=== PATIENT | female | born 1955 | race Caucasian/White ===

== ENCOUNTER 2020-08-24 16:30 | Emergency (ER) | payer MEDICARE, MEDICAID ==
[~2020-08-24] VITALS: Ht 167.6 cm; Wt 100.0 kg
[~2020-08-24 16:30] MED LIST: ALPR0.5T PO; ALPR1TAB2 PO; AMLO-211 PO; ATOR20TA86 PO; ATOR40TA78 PO; CEFD300C37 PO; FERR-51 PO; FURO20TA3 PO; LAMO100T5 PO; LEVO50CA4 PO; LINE600T15 PO; LISI-420 PO; METF500S5 PO; METF500T27 PO; OXYC-509 PO; OXYC15TA3 PO; PRAM0.25 PO; PRAM0.753 PO; PREG100C49 PO; PREG20SO PO; QUET300T5 PO; SERT-238 PO
--- NOTE | 2020-08-24 16:45 | NUR ---
PT BIB EMS FOR CO GI-N/V/D FOR 1 WEEK. INCREASED PEDAL EDEMA FOR 1 WEEK. 2+ NON PITTING. DENIES SOB. COUGH W PHLEGM. DENIES CP RECIEVED 4 MG ZOFRAN
[2020-08-24] MEDS ORDERED: ONDANSETRON 2MG/ML, 2ML IVPush ONE (17:00)
[2020-08-24] MEDS ORDERED: SODIUM CHLORIDE FLUSH 10ML SYR IVF ONE (17:00)
[2020-08-24] MEDS ORDERED: HYDROmorphone 2 MG/ML, 1ML IVPush PRN (17:00)
[2020-08-24] MEDS ORDERED: SODIUM CHLORIDE 0.9% 1,000ML IVBOLUS ONE (17:00)
[2020-08-24 17:13] LABS: BASOPHILS % (AUTO) 1 % (0-1); EOSINOPHILS % (AUTO) 1 % (1-7); LYMPHOCYTES % (AUTO) 17 % (22-44); MEAN CORPUSCULAR HGB CONC 31.9 g/dL (32.4-35.8); MEAN PLATELET VOLUME 7.6 fL (7.4-10.4); MONOCYTES % (AUTO) 5 % (2-9); NEUTROPHILS % (AUTO) 77 % (42-75); PLATELET COUNT 267 x10^3/uL (130-400); RED BLOOD COUNT 4.74 x10^6/uL (3.82-5.3); RED CELL DISTRIBUTION WIDTH 22.9 % (9.6-15.2)
[2020-08-24 17:23] LABS: ALBUMIN 3.5 g/dL (3.4-5.0); ANION GAP 4 mmol/L (5-15); CALCIUM 9.3 mg/dL (8.5-10.1); CHLORIDE 104 mmol/L (98-107)
[2020-08-24 17:27] LABS: ALANINE AMINOTRANSFERASE 45 U/L (12-78); ALKALINE PHOSPHATASE 115 U/L (45-117); BILIRUBIN,TOTAL 0.4 mg/dL (0.2-1.0); TOTAL PROTEIN 6.9 g/dL (6.4-8.2)
--- NOTE | 2020-08-24 17:29 | NUR ---
PT WATCHING TV. PIV, IVF. NO CO PAIN
[2020-08-24] MEDS ORDERED: ALBUTEROL/IPRATROPIUM 2.5MG/0.5MG, 3 ML NPPB ONE (17:30)
[2020-08-24 17:36] LABS: MD MORPH REVIEW ONLY
[2020-08-24 17:37] LABS: ANISOCYTOSIS 2+; POLYCHROMASIA 1+
[2020-08-24 17:38] LABS: HYPOCHROMIA 1+; OVALOCYTES 1+
[2020-08-24 17:39] LABS: <PLATELET ESTIMATE> ADEQUATE; <PLT MORPHOLOGY> NORMAL PLT MORPH
[2020-08-24] MEDS ORDERED: ALBUTEROL/IPRATROPIUM 2.5MG/0.5MG, 3 ML ONE (17:40)
[2020-08-24] MEDS ORDERED: ONDANSETRON 2MG/ML, 2ML ONE (18:07)
[2020-08-24] MEDS ORDERED: HYDROmorphone 1 MG/ML, 1ML INJ ONE (18:07)
--- NOTE | 2020-08-24 18:37 | NUR ---
PT RESTING, RELIEF FROM PAIN AFTER MEDICATION. BREATHING IMPROVED AFTER NEV. IVF.
--- NOTE | 2020-08-24 18:57 | NUR ---
REPORT FROM CONRAD [place]
[2020-08-24 18:59] VITALS: BP 131/56
--- NOTE | 2020-08-24 19:10 | NUR ---
PT VSS. DR MUSE IN TO RECHECK PT. OK FOR DISCHARGE. SHES STATES "PLEASE DONT SEND ME HOME"
--- NOTE | 2020-08-24 19:47 | NUR ---
PT AMBULATED IN THE ROOM WITH A STEADY GAIT. PT REQUESTING A WHEELCHAIR TO THE DISCHARGE DESK. DISCHARGE INSTRUCTIONS PROVIDED AND PT PROVIDED TAXI VOUCHER.
== END 2020-08-24 19:49 | disposition home or self-care (01) ==
LOC: ED 16:54
DX: R11.2 Nausea with vomiting, unspecified (principal); R19.7 Diarrhea, unspecified; E11.9 Type 2 diabetes mellitus without complications; J44.9 Chronic obstructive pulmonary disease, unspecified; I10 Essential (primary) hypertension; E78.5 Hyperlipidemia, unspecified; Z90.49 Acquired absence of other specified parts of digestive tract; Z90.710 Acquired absence of both cervix and uterus; F17.200 Nicotine dependence, unspecified, uncomplicated; Z88.6 Allergy status to analgesic agent; Z88.1 Allergy status to other antibiotic agents; Z88.5 Allergy status to narcotic agent; Z86.39 Personal history of other endocrine, nutritional and metabolic disease
CPT/HCPCS: 36415; 74021; 80053; 83690; 85025; 94640; 96361; 96374; 96375; 99284; J1170; J2405; J7030

== ENCOUNTER 2020-11-26 14:41 | Emergency (ER) | payer MEDICARE, MEDICAID ==
[~2020-11-26] VITALS: Ht 167.6 cm; Wt 104.5 kg
[~2020-11-26 14:41] MED LIST changes: -LISI-420 PO; +LISI20TA21 PO
[2020-11-26] MEDS ORDERED: ONDANSETRON 2MG/ML, 2ML ONE (15:18)
[2020-11-26] MEDS ORDERED: DICYCLOMINE 10 MG/ML, 2ML ONE (15:18)
--- NOTE | 2020-11-26 15:25 | NUR ---
THIS IS A 65 YOF BIB EMS FROM HOME W/ C/O N/V X3 DAYS. PT REPORTS GENERALIZED ABD PAIN. 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 DENIES DIARRHEA, CONSTIPATION. PT MEDICATED PER EMAR. PT RESTING ON GURNEY W/ CALL LIGHT IN REACH AND SIDE RAILS UPX2. VSS, NADN. RAD AT BEDSIDE.
[2020-11-26 15:30] LABS: EOSINOPHILS % (AUTO) 0 % (1-7); MEAN PLATELET VOLUME 7.4 fL (7.4-10.4)
[2020-11-26] MEDS ORDERED: ONDANSETRON 2MG/ML, 2ML IVPush ONE (15:30)
[2020-11-26] MEDS ORDERED: DICYCLOMINE 10 MG/ML, 2ML IM ONE (15:30)
[2020-11-26] MEDS ORDERED: SODIUM CHLORIDE FLUSH 10ML SYR IVF ONE (15:30)
[2020-11-26] MEDS ORDERED: SODIUM CHLORIDE 0.9% 1,000ML IVBOLUS ONE (15:30)
[2020-11-26 15:39] LABS: BASOPHILS % (AUTO) 0 % (0-1); LYMPHOCYTES % (AUTO) 9 % (22-44); MEAN CORPUSCULAR HEMOGLOBIN 29.8 pg (27.0-34.8); MEAN CORPUSCULAR HGB CONC 33.3 g/dL (32.4-35.8); MONOCYTES % (AUTO) 4 % (2-9); NEUTROPHILS % (AUTO) 87 % (42-75); PLATELET COUNT 231 x10^3/uL (130-400); RED BLOOD COUNT 5.47 x10^6/uL (3.82-5.3); RED CELL DISTRIBUTION WIDTH 16.5 % (9.6-15.2)
[2020-11-26 15:41] LABS: ALANINE AMINOTRANSFERASE 29 U/L (12-78); ALBUMIN 3.9 g/dL (3.4-5.0); ANION GAP 8 mmol/L (5-15); CALCIUM 8.9 mg/dL (8.5-10.1); CHLORIDE 102 mmol/L (98-107); CREATININE 0.75 mg/dL (0.55-1.02)
[2020-11-26 15:44] LABS: ALKALINE PHOSPHATASE 135 U/L (45-117); BILIRUBIN,TOTAL 0.8 mg/dL (0.2-1.0); TOTAL PROTEIN 7.7 g/dL (6.4-8.2)
[2020-11-26 16:06] LABS: MD SCAN
--- NOTE | 2020-11-26 16:11 | NUR ---
US AT BEDSIDE.
[2020-11-26] MEDS ORDERED: METOCLOPRAMIDE 5 MG/ML, 2ML ONE (16:55)
[2020-11-26] MEDS ORDERED: METOCLOPRAMIDE 5 MG/ML, 2ML IVPush ONE (17:00)
--- NOTE | 2020-11-26 17:01 | NUR ---
STRAIGHT CATH URINE OBTAINED W/O INCIDENT. WALKED TO LAB.
[2020-11-26] MEDS ORDERED: MORPHINE SULFATE 4 MG/ML, 1ML ONE (17:04)
[2020-11-26 17:05] LABS: MICROSCOPIC AUTO
[2020-11-26] MEDS ORDERED: HYDROmorphone 1 MG/ML, 1ML INJ ONE (17:27)
--- NOTE | 2020-11-26 17:41 | NUR ---
PT WHEELED TO THE BR PER PT REQUEST. RETURNED TO ROOM W/O INCIDENT. MEDICATED PER EMAR. PT RESTING ON [place] W/ CALL LIGHT IN REACH AND SIDE RAILS UPX2. RESP EVEN AND UNLABORED, ERIC.
[2020-11-26] MEDS ORDERED: HYDROmorphone 1 MG/ML, 1ML INJ IV ONE (18:00)
[2020-11-26] MEDS ORDERED: OMNIPAQUE 350 MG/ML, 100ML BOTTLE ONE (18:15)
--- NOTE | 2020-11-26 18:16 | NUR ---
PT DESAT S/P MEDS. PLACED ON 4L NC W/ DESIRED EFFECT.
--- NOTE | 2020-11-26 18:36 | NUR ---
ALL TESTS RESULTED. PT IS UP FOR RECHECK AT THIS TIME.
--- NOTE | 2020-11-26 18:51 | NUR ---
PT SLEEPING COMFORTABLY ON GURNEY, O2 SAT TITRATED DOWN. VSS, NADN. AWAITING DC PPWK.
--- NOTE | 2020-11-26 19:03 | NUR ---
PT UNABLE TO MAINTAIN O2 SAT >90% RA WHILE SLEEPING. WILL CONTINUE TO MONITOR FOR SAFE DC. REPORT TO [facility]. PT RESTING ON GURNEY W/ CALL LIGHT IN REACH AND SIDE RAILS UPX2. RESP EVEN AND UNLABORED,
--- NOTE | 2020-11-26 19:15 | NUR ---
Report from Radha rn with assessment patient too drowsy/hypoxic (narcotics) to attempt d/c. Will monitor/allow to rest then re-evaluate
--- NOTE | 2020-11-26 20:50 | NUR ---
po challenge/road test unremarkable Discharged home after education confirmed with teach back
[2020-11-26 21:00] VITALS: BP 169/88
== END 2020-11-26 21:02 | disposition home or self-care (01) ==
LOC: ED 18:21
DX: R11.2 Nausea with vomiting, unspecified (principal); R10.84 Generalized abdominal pain; N94.89 Other specified conditions associated with female genital organs and menstrual cycle; R60.0 Localized edema; F17.210 Nicotine dependence, cigarettes, uncomplicated; J44.9 Chronic obstructive pulmonary disease, unspecified; I10 Essential (primary) hypertension; E78.5 Hyperlipidemia, unspecified; Z86.39 Personal history of other endocrine, nutritional and metabolic disease; Z90.49 Acquired absence of other specified parts of digestive tract; Z90.710 Acquired absence of both cervix and uterus
CPT/HCPCS: 36415; 71045; 74177; 80053; 81001; 83690; 85025; 93971; 96361; 96372; 96374; 96375; 99285; 99406; J0500; J1170; J2405; J2765; J7030; Q9967

== ENCOUNTER 2021-01-22 19:20 | Emergency (ER) | payer MEDICARE, MEDICAID ==
[~2021-01-22] VITALS: Ht 167.6 cm; Wt 104.0 kg
[~2021-01-22 19:20] MED LIST changes: +ESCI10TA97 PO; +HYDR2TAB29 PO; +HYDR2TAB40 PO
--- NOTE | 2021-01-22 19:59 | NUR ---
n/v/d, lower abd pain since last night. Pt attached to all monitors. VSS. report to primary RN Kamron
[2021-01-22] MEDS ORDERED: SODIUM CHLORIDE FLUSH 10ML SYR IVF ONE (20:00)
[2021-01-22] MEDS ORDERED: ONDANSETRON 2MG/ML, 2ML IVPush ONE (20:00)
[2021-01-22] MEDS ORDERED: SODIUM CHLORIDE 0.9% 1,000ML IVBOLUS ONE (20:00)
[2021-01-22 20:13] LABS: BASOPHILS % (AUTO) 0 % (0-1); EOSINOPHILS % (AUTO) 0 % (1-7); LYMPHOCYTES % (AUTO) 7 % (22-44); MEAN CORPUSCULAR HEMOGLOBIN 29.1 pg (27.0-34.8); MEAN CORPUSCULAR HGB CONC 33.3 g/dL (32.4-35.8); MEAN PLATELET VOLUME 7.8 fL (7.4-10.4); MONOCYTES % (AUTO) 5 % (2-9); NEUTROPHILS % (AUTO) 88 % (42-75); PLATELET COUNT 296 x10^3/uL (130-400); RED BLOOD COUNT 6.12 x10^6/uL (3.82-5.3); RED CELL DISTRIBUTION WIDTH 15.5 % (9.6-15.2)
[2021-01-22 20:25] LABS: ALANINE AMINOTRANSFERASE 32 U/L (12-78); ALBUMIN 3.5 g/dL (3.4-5.0); ANION GAP 9 mmol/L (5-15); CALCIUM 9.3 mg/dL (8.5-10.1); CHLORIDE 105 mmol/L (98-107); CREATININE 0.79 mg/dL (0.55-1.02)
[2021-01-22 20:27] LABS: ALKALINE PHOSPHATASE 102 U/L (45-117); BILIRUBIN,TOTAL 0.7 mg/dL (0.2-1.0); TOTAL PROTEIN 7.7 g/dL (6.4-8.2)
--- NOTE | 2021-01-22 20:29 | NUR ---
pt trasnferred to commode and back. obtained stool sample. pt tolerated well. attached to car/sp02/bp monitors. vss. bed in low position. rails engaged. call light within reach. wctm
[2021-01-22] MEDS ORDERED: ONDANSETRON 2MG/ML, 2ML ONE (21:01)
[2021-01-22 22:00] LABS: MICROSCOPIC AUTO
[2021-01-22] MEDS ORDERED: HYDROmorphone 1 MG/ML, 1ML INJ ONE (22:18)
[2021-01-22] MEDS ORDERED: HYDROmorphone 1 MG/ML, 1ML INJ IV ONE (22:30)
[2021-01-22 23:04] LABS: CLOSTRIDIUM DIFFICILE ANTIGEN NEGATIVE; CLOSTRIDIUM DIFFICILE TOXIN NEGATIVE (Negative)
--- NOTE | 2021-01-22 23:04 | NUR ---
PT OFF UNIT IN IMAGING.
[2021-01-22] MEDS ORDERED: OMNIPAQUE 350 MG/ML, 100ML BOTTLE ONE (23:06)
[2021-01-22 23:28] VITALS: BP 114/47
--- NOTE | 2021-01-23 00:30 | NUR ---
Patient given discharge instructions and they have confirmed that they understand the instructions. Patient WHEELCHAIRED OUT. NAD, all questions answered appropriately, denies additional needs at this time. No personal belongings left in room after discharge. PT GIVEN NON-SLIP SOCKS AND TAXI VOUCHER FOR SAFE DISCHARGE.
== END 2021-01-23 00:32 | disposition home or self-care (01) ==
LOC: ED 21:10
DX: K52.9 Noninfective gastroenteritis and colitis, unspecified (principal); D72.829 Elevated white blood cell count, unspecified; N83.202 Unspecified ovarian cyst, left side; I10 Essential (primary) hypertension; J44.9 Chronic obstructive pulmonary disease, unspecified; E78.5 Hyperlipidemia, unspecified; Z86.39 Personal history of other endocrine, nutritional and metabolic disease
CPT/HCPCS: 36415; 74177; 80053; 81001; 83690; 85025; 87324; 89055; 93005; 96374; 96375; 99285; J1170; J2405; J7030; Q9967

== ENCOUNTER 2021-01-27 14:25 | Observation (INO) | payer MEDICARE, MEDICAID ==
[~2021-01-27] VITALS: Ht 167.6 cm; Wt 92.4 kg
--- NOTE | 2021-01-27 14:34 | NUR ---
PT BROUGHT IN BY [place] FROM HOME WITH CHIEF COMPLAINT OF INTERMITENT LOSS OF BOWEL AND BLADDER CONTROL FOR A FEW MOMTHS WITH RIGHT HIP PAIN.
--- NOTE | 2021-01-27 14:57 | NUR ---
PT TO IMAGING
[2021-01-27 15:00] LABS: BASOPHILS % (AUTO) 0 % (0-1); EOSINOPHILS % (AUTO) 1 % (1-7); LYMPHOCYTES % (AUTO) 15 % (22-44); MEAN CORPUSCULAR HGB CONC 33.5 g/dL (32.4-35.8); MEAN PLATELET VOLUME 7.5 fL (7.4-10.4); MONOCYTES % (AUTO) 4 % (2-9); NEUTROPHILS % (AUTO) 79 % (42-75); PLATELET COUNT 219 x10^3/uL (130-400); RED BLOOD COUNT 5.94 x10^6/uL (3.82-5.3); RED CELL DISTRIBUTION WIDTH 15.8 % (9.6-15.2)
[2021-01-27 15:12] LABS: ALANINE AMINOTRANSFERASE 34 U/L (12-78); ALBUMIN 3.7 g/dL (3.4-5.0); ANION GAP 13 mmol/L (5-15); CALCIUM 8.7 mg/dL (8.5-10.1); CHLORIDE 98 mmol/L (98-107); CREATININE 0.81 mg/dL (0.55-1.02)
[2021-01-27 15:15] LABS: ALKALINE PHOSPHATASE 93 U/L (45-117); BILIRUBIN,TOTAL 1.2 mg/dL (0.2-1.0); TOTAL PROTEIN 7.1 g/dL (6.4-8.2)
--- NOTE | 2021-01-27 15:19 | NUR ---
PT BACK FROM IMAGING, URINE SAMPLE COLLECTED AND SENT. PT A&O, RESPS EVEN AND UNLABORED, VSS. PT AWARE OF STOOL SAMPLE NEEDED, PT STATES NO NEED TO HAVE A BOWEL MOVEMENT AT THIS TIME.
[2021-01-27] MEDS ORDERED: HYDROmorphone 1 MG/ML, 1ML INJ ONE (15:22)
[2021-01-27] MEDS ORDERED: ONDANSETRON 2MG/ML, 2ML ONE (15:22)
[2021-01-27 15:29] LABS: MICROSCOPIC NOT IND
[2021-01-27] MEDS ORDERED: HYDROmorphone 1 MG/ML, 1ML INJ IV ONE (15:30)
[2021-01-27] MEDS ORDERED: ONDANSETRON 2MG/ML, 2ML IVPush ONE (15:30)
[2021-01-27] MEDS: NS + 40MEQ KCL 1,000 ML IV SCH ×2 (15:58→19:58)
[2021-01-27] MEDS ORDERED: POTASSIUM CHLORIDE 20 MEQ TAB.ER.PRT PO ONE (16:00)
[2021-01-27] MEDS ORDERED: SODIUM CHLORIDE FLUSH 10ML SYR IVF ONE (16:00)
[2021-01-27] MEDS ORDERED: POTASSIUM CHLORIDE 20 MEQ TAB.ER.PRT ONE (16:23)
[2021-01-27] MEDS ORDERED: NS + 40MEQ KCL 1,000 ML IV ONE (16:23)
--- NOTE | 2021-01-27 16:46 | NUR ---
PIV placed via US, meds given per order, tolerated well. fluids infusing on pump, pt a&o, resps even and unlabored, vss, nadn.
--- NOTE | 2021-01-27 17:12 | NUR ---
hospitalist at bedside to discuss poc
[2021-01-27] MEDS ORDERED: ONDANSETRON 2MG/ML, 2ML IVPush PRN (17:30)
[2021-01-27] MEDS ORDERED: IBUPROFEN 600 MG TABLET PO PRN (17:30)
[2021-01-27] MEDS ORDERED: ONDANSETRON ODT 4 MG PO PRN (17:30)
[2021-01-27] MEDS ORDERED: OXYcodone IR 5MG TABLET PO PRN (17:30)
[2021-01-27] MEDS ORDERED: LABETALOL 5MG/ML, 20ML IVPush PRN (17:30)
[2021-01-27] MEDS ORDERED: BISACODYL 10 MG SUPP PR PRN (17:30)
[2021-01-27] MEDS ORDERED: DOCUSATE 100 MG CAPSULE PO PRN (17:30)
[2021-01-27] MEDS ORDERED: NICOTINE 21 MG/24 HR PATCH.TD24 TD ONE (17:30)
[2021-01-27] MEDS ORDERED: ALBUTEROL/IPRATROPIUM 2.5MG/0.5MG, 3 ML NPPB PRN (18:00)
--- NOTE | 2021-01-27 18:34 | NUR ---
report given to receiving jeff Wen
[2021-01-27 19:50] VITALS: BP 100/66
[2021-01-27] MEDS: NS + 20MEQ KCL 1,000 ML IV SCH (20:00)
[2021-01-27] MEDS: ENOXAPARIN 40 MG/0.4 ML SQ SCH (20:01)
[2021-01-27] MEDS: PRAMIPEXOLE 0.25MG TABLET PO SCH (20:01)
[2021-01-27] MEDS: ACETAMINOPHEN 325 MG TABLET PO SCH ×2 (20:02→21:00)
[2021-01-27] MEDS: QUETIAPINE 100MG TABLET PO SCH (20:02)
[2021-01-27] MEDS: PREGABALIN 100 MG CAPSULE PO SCH (20:02)
[2021-01-27] MEDS: ATORVASTATIN 40 MG TABLET PO SCH (20:02)
[2021-01-27] MEDS: OXYcodone IR 5MG TABLET PO PRN (20:03)
[2021-01-27] MEDS: METHOCARBAMOL 500 MG TABLET PO PRN (20:03)
[2021-01-28 00:54] VITALS: BP 100/67
[2021-01-28] MEDS: ALPRazolam 1MG TAB PO PRN (04:04)
[2021-01-28] MEDS: OXYcodone IR 5MG TABLET PO PRN ×4 (04:04→23:06)
[2021-01-28 05:07] LABS: BASOPHILS % (AUTO) 1 % (0-1); EOSINOPHILS % (AUTO) 2 % (1-7); LYMPHOCYTES % (AUTO) 26 % (22-44); MEAN CORPUSCULAR HEMOGLOBIN 29.3 pg (27.0-34.8); MEAN PLATELET VOLUME 7.7 fL (7.4-10.4); MONOCYTES % (AUTO) 5 % (2-9); NEUTROPHILS % (AUTO) 66 % (42-75); PLATELET COUNT 184 x10^3/uL (130-400); RED CELL DISTRIBUTION WIDTH 15.1 % (9.6-15.2)
[2021-01-28 05:15] LABS: ANION GAP 8 mmol/L (5-15); CALCIUM 8.5 mg/dL (8.5-10.1); CHLORIDE 105 mmol/L (98-107)
[2021-01-28 05:16] LABS: CREATININE 0.71 mg/dL (0.55-1.02)
[2021-01-28] MEDS: NS + 20MEQ KCL 1,000 ML IV SCH ×2 (06:43→16:45)
[2021-01-28 07:40] VITALS: BP 125/85
[2021-01-28] MEDS ORDERED: OXYcodone 5 MG/5 ML ORAL.SOL UDC ONE (08:48)
[2021-01-28] MEDS: SERTRALINE 100MG TABLET PO SCH (09:02)
[2021-01-28] MEDS: POTASSIUM CHLORIDE 20 MEQ TAB.ER.PRT PO SCH ×2 (09:03→16:50)
[2021-01-28] MEDS: FERROUS SULFATE 325 MG TABLET PO SCH (09:03)
[2021-01-28] MEDS: MAGNESIUM OXIDE 400 MG TABLET PO SCH (09:03)
[2021-01-28] MEDS: ACETAMINOPHEN 325 MG TABLET PO SCH ×3 (09:03→19:51)
[2021-01-28] MEDS: AMLODIPINE 10 MG TAB PO SCH (09:03)
[2021-01-28] MEDS: LAMOTRIGINE 100 MG TABLET PO SCH (09:03)
[2021-01-28] MEDS: PREGABALIN 100 MG CAPSULE PO SCH ×2 (09:03→19:51)
[2021-01-28 14:23] VITALS: BP 106/64
[2021-01-28 17:23] VITALS: BP 112/70
[2021-01-28 19:41] VITALS: BP 104/65
[2021-01-28] MEDS: LIDODERM 5% PATCH TD SCH (19:50)
[2021-01-28] MEDS: ENOXAPARIN 40 MG/0.4 ML SQ SCH (19:50)
[2021-01-28] MEDS: QUETIAPINE 100MG TABLET PO SCH (19:50)
[2021-01-28] MEDS: PRAMIPEXOLE 0.25MG TABLET PO SCH (19:51)
[2021-01-28] MEDS: ATORVASTATIN 40 MG TABLET PO SCH (19:51)
[2021-01-29 01:32] VITALS: BP 111/71
[2021-01-29 05:10] LABS: CHLORIDE 112 mmol/L (98-107)
[2021-01-29 05:18] LABS: ANION GAP 5 mmol/L (5-15); CALCIUM 8.5 mg/dL (8.5-10.1); CREATININE 0.54 mg/dL (0.55-1.02)
[2021-01-29] MEDS: LIDODERM REMOVE PATCH NOTE XX SCH (05:59)
[2021-01-29] MEDS: OXYcodone IR 5MG TABLET PO PRN ×3 (05:59→22:30)
[2021-01-29 08:00] VITALS: BP 130/79
[2021-01-29] MEDS: FERROUS SULFATE 325 MG TABLET PO SCH (08:06)
[2021-01-29] MEDS: PREGABALIN 100 MG CAPSULE PO SCH ×2 (08:06→20:09)
[2021-01-29] MEDS: SERTRALINE 100MG TABLET PO SCH (08:06)
[2021-01-29] MEDS: ACETAMINOPHEN 325 MG TABLET PO SCH ×3 (08:06→20:09)
[2021-01-29] MEDS: LAMOTRIGINE 100 MG TABLET PO SCH (08:06)
[2021-01-29] MEDS: MAGNESIUM OXIDE 400 MG TABLET PO SCH (08:06)
[2021-01-29] MEDS: AMLODIPINE 10 MG TAB PO SCH (08:06)
[2021-01-29] MEDS: POLYETHYLENE GLYCOL 17 GM PACKET PO PRN ×2 (08:11→20:08)
[2021-01-29] MEDS ORDERED: POLYETHYLENE GLYCOL 17 GM PACKET NG ONE (12:00)
[2021-01-29 13:32] VITALS: BP 128/78
[2021-01-29] MEDS: METHOCARBAMOL 500 MG TABLET PO PRN (13:45)
[2021-01-29] MEDS ORDERED: PREG100C PO (13:55)
[2021-01-29 18:48] VITALS: BP 120/64
[2021-01-29] MEDS: LIDODERM 5% PATCH TD SCH (20:07)
[2021-01-29] MEDS: QUETIAPINE 100MG TABLET PO SCH (20:09)
[2021-01-29] MEDS: PRAMIPEXOLE 0.25MG TABLET PO SCH (20:10)
[2021-01-29] MEDS: ATORVASTATIN 40 MG TABLET PO SCH (20:10)
[2021-01-29] MEDS: ENOXAPARIN 40 MG/0.4 ML SQ SCH (20:15)
[2021-01-29] MEDS: ALPRazolam 1MG TAB PO PRN (20:21)
[2021-01-30 00:23] VITALS: BP 105/68
[2021-01-30] MEDS: OXYcodone IR 5MG TABLET PO PRN ×2 (04:59→11:01)
[2021-01-30] MEDS: LIDODERM REMOVE PATCH NOTE XX SCH (06:00)
[2021-01-30 07:08] VITALS: BP 126/80
[2021-01-30] MEDS: LAMOTRIGINE 100 MG TABLET PO SCH (07:49)
[2021-01-30] MEDS: SERTRALINE 100MG TABLET PO SCH (07:49)
[2021-01-30] MEDS: MAGNESIUM OXIDE 400 MG TABLET PO SCH (07:49)
[2021-01-30] MEDS: FERROUS SULFATE 325 MG TABLET PO SCH (07:49)
[2021-01-30] MEDS: METHOCARBAMOL 500 MG TABLET PO PRN ×2 (07:49→16:13)
[2021-01-30] MEDS: AMLODIPINE 10 MG TAB PO SCH (07:49)
[2021-01-30] MEDS: PREGABALIN 100 MG CAPSULE PO SCH (07:50)
[2021-01-30] MEDS: ACETAMINOPHEN 325 MG TABLET PO SCH ×2 (07:50→16:13)
[2021-01-30] MEDS ORDERED: NICOTINE 14MG/24 HR PATCH.TD24 TD SCH (09:00)
[2021-01-30 13:11] VITALS: BP 98/54
[2021-01-30] MEDS ORDERED: OXYC5TAB98 PO (13:27)
== END 2021-01-30 16:30 ==
LOC: ED 15:17 → 4NE 17:18 → ED 21:21 → 3N 01-28 17:03
PROVIDERS: ADMIT Family Medicine; ATTEND Hospitalist
DX: S72.111A Displaced fracture of greater trochanter of right femur, initial encounter for closed fracture (principal); E87.6 Hypokalemia; I10 Essential (primary) hypertension; J44.9 Chronic obstructive pulmonary disease, unspecified; G89.29 Other chronic pain; M54.9 Dorsalgia, unspecified; F31.9 Bipolar disorder, unspecified; J96.10 Chronic respiratory failure, unspecified whether with hypoxia or hypercapnia; D75.1 Secondary polycythemia; E11.9 Type 2 diabetes mellitus without complications; K52.9 Noninfective gastroenteritis and colitis, unspecified; R32 Unspecified urinary incontinence; F17.210 Nicotine dependence, cigarettes, uncomplicated; Z99.81 Dependence on supplemental oxygen; Z85.3 Personal history of malignant neoplasm of breast; Z90.12 Acquired absence of left breast and nipple; Z96.641 Presence of right artificial hip joint; Z91.81 History of falling; W18.30XA Fall on same level, unspecified, initial encounter; Y93.89 Activity, other specified; Y92.89 Other specified places as the place of occurrence of the external cause
CPT/HCPCS: 36415; 73502; 80048; 80053; 81003; 83735; 84100; 85025; 93005; 96365; 96366; 96372; 96375; 97162; 97166; 97530; 99285; G0378; J1170; J1650; J2405; J3480